=== PATIENT | female | born 1930 | race Two or more races ===

== ENCOUNTER 2016-10-17 10:28 | Inpatient (IN) | payer MEDICAID ==
[~2016-10-17] VITALS: Ht 165.1 cm; Wt 75.3 kg
[~2016-10-17 10:28] MED LIST: ALBU18 IN; CARV6.2551 PO; CLIN1CAP4 PO; GABA-494 PO; GLIM2TAB33 PO; LISI40TA PO; METF-314 PO; METO25TA62 PO; Pantoprazole Sodium Sesquihydr PO; SIMV-8 PO
[2016-10-17 11:45] LABS: Basophils # (auto) 0 uL; DEFINITIVE VIEW TRANSMISSION; Eosinophils # (auto) 0 uL; Eosinophils % (auto) 0.3 % (0.0-7.0); Hemoglobin 13.6 g/dL (12.2-16.2); Lymphocytes # (auto) 2.3 uL; Lymphocytes % (auto) 19.6 % (10.0-50.0); Mean Corpuscular Hemoglobin 26.6 pg (28.0-32.0); Mean Corpuscular Hgb Conc. 32.4 g/dL (32.0-36.0); Mean Corpuscular Volume 82.2 fL (80.0-100.0); Mean Platelet Volume 8.1 fL (7.4-10.4); Monocytes # (auto) 0.6 uL; Monocytes % (auto) 5.3 % (0.0-12.0); Neutrophils # (auto) 8.6 uL; Neutrophils % (auto) 74.8 % (37.0-80.0); Platelet Count (auto) 275 10^3/uL (140-450); Red Cell Distribution Width 15.8 % (11.6-16.0); White Blood Cell 11.5 10^3/uL (4.4-10.8)
[2016-10-17 12:10] LABS: Albumin 3.3 g/dL (3.4-5.0); BUN/Creatinine Ratio 27.3; Bilirubin, Total 0.5 mg/dL (0.2-1.0); Calcium 9.6 mg/dL (8.5-10.1); Potassium 3.4 mmol/L (3.5-5.1); Total Protein 7.4 g/dL (6.4-8.2)
[2016-10-17] MEDS ORDERED: SODIUM CHLORIDE 0.9% 1,000 ML IVB ONE (15:12)
[2016-10-17] MEDS ORDERED: DEXTROSE (50%) 50ML SYRG IV ONE (15:15)
[2016-10-17 15:49] LABS: INR 1.04 (0.9-1.15); Partial Thromboplastin Time 26.8 sec (22.64-33.71); Prothrombin Time 10.7 sec (9.37-12.3)
[2016-10-17 16:09] LABS: Urine Bilirubin Negative (Negative); Urine Color Yellow (Yellow); Urine Glucose Normal (Normal); Urine Ketone Negative (Negative); Urine RBC 28 /hpf (0 - 4); Urine Urobilinogen Normal (Negative); Urine WBC Clumps PRESENT /hpf (None Seen); Urine pH 5.5 (5.0-8.0)
[2016-10-17 16:12] LABS: Urine Blood 1+ /uL (Negative); Urine Nitrite POSITIVE (Negative)
[2016-10-17] MEDS ORDERED: cefTRIAXone 1GM/50ML D5W 50 ML IV ONE ×2 (17:15→17:30)
[2016-10-17] MEDS ORDERED: TEMAZEPAM 15 MG CAP PO PRN (17:30)
[2016-10-17] MEDS ORDERED: ACETAMINOPHEN 500 MG TAB PO PRN (17:30)
[2016-10-17] MEDS ORDERED: NITROGLYCERIN 0.4 MG SL TAB SL PRN (17:30)
[2016-10-17] MEDS ORDERED: DEXTROSE (50%) 50ML SYRG IV PRN (17:30)
[2016-10-17] MEDS ORDERED: ALBUTEROL SULF 2.5 MG/0.5ML(0.5%) NEB SOLN NEB PRN (17:30)
[2016-10-17] MEDS ORDERED: PROMETHAZINE HCL 25 MG/ML 1ML IV PRN (17:30)
[2016-10-17] MEDS ORDERED: MORPHINE SULF INJ 2 MG/ML SYRINGE 1ML IV PRN ×2 (17:30)
[2016-10-17] MEDS ORDERED: HYDROcodone-ACET 5/325MG TAB PO PRN (17:30)
[2016-10-17] MEDS ORDERED: LORazepam 0.5 MG TAB PO PRN (17:30)
[2016-10-17] MEDS: SODIUM CHLORIDE 0.9% 1,000 ML IV SCH (18:26)
[2016-10-17] MEDS: ENOXAPARIN SOD 40 MG/0.4 ML SYRINGE SC SCH (18:34)
[2016-10-17] MEDS ORDERED: LISINOPRIL 20 MG TAB PO ONE (19:00)
[2016-10-17] MEDS ORDERED: ASPirin 81 mg TAB PO ONE (19:15)
[2016-10-17] MEDS ORDERED: METOPROLOL SUCCINATE XL 50 MG TAB PO SCH (22:00)
[2016-10-17] MEDS ORDERED: CARVEDILOL 3.125 MG TAB PO SCH (22:00)
[2016-10-17] MEDS: ACCU-CHEK COMFORT CURVE STRIP VI SCH (22:00)
[2016-10-17 22:15] VITALS: BP_SYST 131; BP_SYST 153; BP_DIAS 63; BP_DIAS 74
[2016-10-17] MEDS: CLINDAMYCIN 600MG IV 50 ML IV SCH (23:15)
[2016-10-17] MEDS: GABAPENTIN 100 MG CAP PO SCH (23:16)
[2016-10-17] MEDS: ATORVASTATIN 20 MG TAB PO SCH (23:16)
[2016-10-17] MEDS: InsuLIN REG 1unit/0.01ml Soln (100units/ml) SC SCH (23:30)
[2016-10-18] MEDS: SODIUM CHLORIDE 0.9% 1,000 ML IV SCH ×3 (03:46→22:12)
[2016-10-18 05:00] VITALS: BP 143/73
[2016-10-18 05:46] LABS: Basophils # (auto) 0 uL; Basophils % (auto) 0.4 % (0.0-2.0); DEFINITIVE VIEW TRANSMISSION; Eosinophils # (auto) 0.1 uL; Eosinophils % (auto) 1.4 % (0.0-7.0); Hematocrit 38.8 % (36.0-46.0); Hemoglobin 11.8 g/dL (12.2-16.2); Lymphocytes # (auto) 3.9 uL; Lymphocytes % (auto) 42.8 % (10.0-50.0); Mean Corpuscular Hemoglobin 26.1 pg (28.0-32.0); Mean Corpuscular Hgb Conc. 30.4 g/dL (32.0-36.0); Mean Corpuscular Volume 85.8 fL (80.0-100.0); Mean Platelet Volume 8.2 fL (7.4-10.4); Monocytes # (auto) 0.7 uL; Monocytes % (auto) 7.3 % (0.0-12.0); Neutrophils # (auto) 4.4 uL; Neutrophils % (auto) 48.1 % (37.0-80.0); Platelet Count (auto) 218 10^3/uL (140-450); Red Cell Distribution Width 16.4 % (11.6-16.0); White Blood Cell 9.1 10^3/uL (4.4-10.8)
[2016-10-18] MEDS: GABAPENTIN 100 MG CAP PO SCH ×3 (06:00→20:49)
[2016-10-18] MEDS: ACCU-CHEK COMFORT CURVE STRIP VI SCH ×4 (06:13→20:51)
[2016-10-18] MEDS: InsuLIN REG 1unit/0.01ml Soln (100units/ml) SC SCH ×4 (06:13→22:21)
[2016-10-18] MEDS: CLINDAMYCIN 600MG IV 50 ML IV SCH ×3 (06:14→22:06)
[2016-10-18 06:17] LABS: Albumin 2.5 g/dL (3.4-5.0); BUN/Creatinine Ratio 25.8; Calcium 7.9 mg/dL (8.5-10.1); Potassium 3.4 mmol/L (3.5-5.1)
[2016-10-18 06:20] LABS: Bilirubin, Total 0.4 mg/dL (0.2-1.0); Total Protein 6.1 g/dL (6.4-8.2)
[2016-10-18] MEDS: GLIMEPIRIDE 2 MG TAB PO SCH (08:00)
[2016-10-18 09:00] VITALS: BP 155/83
[2016-10-18] MEDS: cefTRIAXone 1GM/50ML D5W 50 ML IV SCH (09:39)
[2016-10-18] MEDS: ENOXAPARIN SOD 40 MG/0.4 ML SYRINGE SC SCH (10:57)
[2016-10-18] MEDS: LISINOPRIL 20 MG TAB PO SCH (10:57)
[2016-10-18] MEDS: ASPirin 81 mg TAB PO SCH (10:58)
[2016-10-18] MEDS: PANTOPRAZOLE 40 MG TAB PO SCH (10:58)
[2016-10-18 13:00] VITALS: BP 147/88
[2016-10-18 15:56] VITALS: BP 155/75
[2016-10-18] MEDS ORDERED: POTASSIUM CHL 20 Meq TABLET PO ONE (16:00)
[2016-10-18] MEDS: ATORVASTATIN 20 MG TAB PO SCH (20:49)
[2016-10-18 22:00] VITALS: BP 185/70
[2016-10-19 05:00] VITALS: BP 154/51
[2016-10-19 05:33] LABS: Basophils # (auto) 0 uL; Basophils % (auto) 0.6 % (0.0-2.0); DEFINITIVE VIEW TRANSMISSION; Eosinophils # (auto) 0.2 uL; Eosinophils % (auto) 3.1 % (0.0-7.0); Hematocrit 35.9 % (36.0-46.0); Hemoglobin 11.3 g/dL (12.2-16.2); Lymphocytes # (auto) 2.7 uL; Mean Corpuscular Hemoglobin 26.4 pg (28.0-32.0); Mean Corpuscular Hgb Conc. 31.5 g/dL (32.0-36.0); Mean Corpuscular Volume 83.7 fL (80.0-100.0); Mean Platelet Volume 8.1 fL (7.4-10.4); Monocytes # (auto) 0.5 uL; Monocytes % (auto) 7.3 % (0.0-12.0); Neutrophils # (auto) 3.3 uL; Platelet Count (auto) 237 10^3/uL (140-450); White Blood Cell 6.8 10^3/uL (4.4-10.8)
[2016-10-19] MEDS: GABAPENTIN 100 MG CAP PO SCH ×2 (05:50→14:36)
[2016-10-19] MEDS: CLINDAMYCIN 600MG IV 50 ML IV SCH (05:50)
[2016-10-19 05:53] LABS: BUN/Creatinine Ratio 29.1; Calcium 7.9 mg/dL (8.5-10.1); Magnesium 1.9 mg/dL (1.6-2.6); Potassium 3.8 mmol/L (3.5-5.1)
[2016-10-19] MEDS: InsuLIN REG 1unit/0.01ml Soln (100units/ml) SC SCH ×2 (06:27→11:30)
[2016-10-19] MEDS: ACCU-CHEK COMFORT CURVE STRIP VI SCH ×2 (06:27→11:30)
[2016-10-19] MEDS: GLIMEPIRIDE 2 MG TAB PO SCH (08:44)
[2016-10-19] MEDS: cefTRIAXone 1GM/50ML D5W 50 ML IV SCH (08:44)
[2016-10-19 09:00] VITALS: BP 127/60
[2016-10-19] MEDS: SODIUM CHLORIDE 0.9% 1,000 ML IV SCH (09:19)
[2016-10-19] MEDS: PANTOPRAZOLE 40 MG TAB PO SCH (09:54)
[2016-10-19] MEDS: ENOXAPARIN SOD 40 MG/0.4 ML SYRINGE SC SCH (09:55)
[2016-10-19] MEDS: LISINOPRIL 20 MG TAB PO SCH (09:55)
[2016-10-19] MEDS: ASPirin 81 mg TAB PO SCH (10:14)
[2016-10-19 13:00] VITALS: BP 127/68
[2016-10-19] MEDS ORDERED: SACC250C PO (14:10)
[2016-10-19] MEDS ORDERED: CIPR-217 PO (14:10)
[2016-10-19] MEDS ORDERED: ASPI81CH43 PO (14:10)
[2016-10-19] MEDS ORDERED: SODIUM CHLORIDE 0.9% 1,000 ML IV SCH (14:15)
[2016-10-19 15:44] VITALS: BP 127/60
[2016-10-19 17:03] VITALS: BP 154/51
[2016-10-19 17:07] VITALS: BP 154/51
[2016-10-19] MEDS ORDERED: FUROSEMIDE INJECTION 500 MG in D5W 5% 450 ML IV SCH (18:00)
[2016-10-19] MEDS ORDERED: DOBUTamine 1000MCG/ML 250 ML IV SCH (18:00)
[2016-10-19] MEDS ORDERED: POTASSIUM CHL 20 Meq TABLET PO SCH (22:00)
[2016-10-20] MEDS ORDERED: ASPirin 81 mg TAB PO SCH (10:00)
[2016-10-20] MEDS ORDERED: DIGOXIN 0.25 MG TAB PO SCH (10:00)
== END 2016-10-19 17:45 | disposition home or self-care (01) | DRG 720 ==
LOC: EDUNIT# 10:28 → ER 10:28 → TELE 10:29 → TELE-WESTW 22:32
PROVIDERS: ADMIT Internal Medicine; ATTEND Internal Medicine
DX: A41.51 Sepsis due to Escherichia coli [E. coli] (principal); G93.41 Metabolic encephalopathy; E11.649 Type 2 diabetes mellitus with hypoglycemia without coma; E87.1 Hypo-osmolality and hyponatremia; F03.90 Unspecified dementia, unspecified severity, without behavioral disturbance, psychotic disturbance, mood disturbance, and anxiety; E87.6 Hypokalemia; L89.899 Pressure ulcer of other site, unspecified stage; N30.00 Acute cystitis without hematuria; I10 Essential (primary) hypertension; E11.69 Type 2 diabetes mellitus with other specified complication; E78.5 Hyperlipidemia, unspecified; Z79.4 Long term (current) use of insulin; Z86.73 Personal history of transient ischemic attack (TIA), and cerebral infarction without residual deficits; K21.9 Gastro-esophageal reflux disease without esophagitis; Z83.3 Family history of diabetes mellitus
CPT/HCPCS: 36415; 51702; 70450; 71010; 80048; 80053; 81001; 82607; 82962; 83036; 83605; 83735; 84443; 84484; 85025; 85610; 85730; 87040; 87086; 87088; 87186; 93005; 94761; 95819; 96361; 96365; 96375; J0696; J1815; J3490